=== PATIENT | male | born 1990 | race Caucasian/White ===

== ENCOUNTER 2024-03-04 14:41 | Emergency (ER) | payer MEDICAID, OTHER ==
[~2024-03-04] VITALS: Ht 175.3 cm; Wt 76.0 kg
[2024-03-04 14:49] VITALS: TEMP 98; O2SAT 100
[2024-03-04] MEDS ORDERED: ACETAMINOPHEN 325MG TABLET PO ONE (16:00)
[2024-03-04] MEDS: IBUPROFEN 800MG TABLET PO ONE (16:24)
[2024-03-04] MEDS: ACETAMINOPHEN 500MG TABLET PO NR (16:24)
[2024-03-04] MEDS ORDERED: CARI250T MT (16:50)
[2024-03-04] MEDS ORDERED: IBUP-1523 MT (16:50)
[2024-03-04] MEDS ORDERED: TOPUD MT (16:50)
[2024-03-04 17:19] VITALS: BP 138/88; PULSE 63; RESP 18; O2SAT 98
== END 2024-03-04 17:20 | disposition home or self-care (01) ==
LOC: ER 14:41
DX: M25.531 Pain in right wrist (principal); M54.50 Low back pain, unspecified; F14.10 Cocaine abuse, uncomplicated; F15.10 Other stimulant abuse, uncomplicated
CPT/HCPCS: 72040; 72100; 73110; 99284

== ENCOUNTER 2024-03-26 11:20 | Emergency (ER) | payer MEDICAID ==
[~2024-03-26] VITALS: Ht 177.8 cm; Wt 70.0 kg
[~2024-03-26 11:20] MED LIST: CARI250T MT; IBUP-1523 MT; TOPUD MT
[2024-03-26 11:29] VITALS: O2SAT 98
[2024-03-26 11:39] VITALS: BP 133/88; PULSE 79; RESP 18; TEMP 98.6; O2SAT 98
== END 2024-03-26 13:40 | disposition left against medical advice (07) ==
LOC: ER 11:20
DX: H92.01 Otalgia, right ear (principal); Z53.21 Procedure and treatment not carried out due to patient leaving prior to being seen by health care provider

== ENCOUNTER 2024-03-28 11:27 | Emergency (ER) | payer MEDICAID ==
[~2024-03-28] VITALS: Ht 177.8 cm; Wt 68.0 kg
[2024-03-28 11:30] VITALS: O2SAT 99
[2024-03-28 11:31] VITALS: TEMP 98.4; O2SAT 100
[2024-03-28] MEDS ORDERED: IBUP-2029 MT (12:05)
[2024-03-28] MEDS ORDERED: AMOX-494 MT (12:05)
[2024-03-28 12:35] VITALS: BP 125/89; PULSE 80; RESP 14
[2024-03-28] MEDS: KETOROLAC 30MG/ML VIAL IM ONE (12:35)
== END 2024-03-28 12:39 | disposition home or self-care (01) ==
LOC: ER 11:29
DX: H66.91 Otitis media, unspecified, right ear (principal); F14.90 Cocaine use, unspecified, uncomplicated; F15.90 Other stimulant use, unspecified, uncomplicated; Z79.899 Other long term (current) drug therapy
CPT/HCPCS: 99283; 96372; J1885